=== PATIENT | male | born 1990 | race Caucasian/White ===

== ENCOUNTER 2020-11-07 13:57 | Emergency (ER) | payer OTHER ==
[~2020-11-07] VITALS: Ht 170.2 cm; Wt 83.9 kg
[2020-11-07 14:01] VITALS: BP 165/107
[2020-11-07] MEDS ORDERED: ASPIRIN 81 MG TAB.CHEW PO ONE (14:25)
[2020-11-07] MEDS ORDERED: ASPIRIN 81 MG TAB.CHEW ONE (14:28)
[2020-11-07 14:37] LABS: BASOPHILS % (AUTO) 0.6 % (0.0-2.0); EOSINOPHILS # (AUTO) 0.1 K/uL (0-0.4); EOSINOPHILS % (AUTO) 1.7 % (0.0-4.0); HEMATOCRIT 46.8 % (36-52); HEMOGLOBIN 15.3 g/dL (12.0-18.0); LYMPHOCYTES # (AUTO) 2.6 K/uL (2.0-11.5); LYMPHOCYTES % (AUTO) 31.1 % (20.5-51.1); MEAN CORPUSCULAR HEMOGLOBIN 26 pg (27-31); MEAN CORPUSCULAR HGB CONC 33 g/dL (33-37); MEAN CORPUSCULAR VOLUME 79.1 fL (80-94); MONOCYTES # (AUTO) 0.7 K/uL (0.8-1.0); MONOCYTES % (AUTO) 7.9 % (1.7-9.3); NEUTROPHILS % (AUTO) 58.7 % (42.2-75.2); PLATELET COUNT (AUTO) 319 K/uL (140-450); RED BLOOD CELL COUNT(AUTO) 5.91 MIL/uL (4.20-6.10); RED CELL DISTRIBUTION WIDTH 13.7 % (11.6-13.7); WHITE BLOOD COUNT (AUTO) 8.5 K/uL (4.8-10.8)
[2020-11-07 14:51] LABS: ALBUMIN 4.6 g/dL (3.4-5.0); ANION GAP 13.3 (8-16); CARBON DIOXIDE 26.7 mmol/L (21-32); TOTAL BILIRUBIN 0.5 mg/dL (0.0-1.0)
[2020-11-07] MEDS ORDERED: METO-485 PO (17:20)
[2020-11-07 17:36] VITALS: BP 165/107
== END 2020-11-07 17:37 | disposition home or self-care (01) ==
LOC: MED 13:57
DX: R07.9 Chest pain, unspecified (principal); R10.13 Epigastric pain; R06.02 Shortness of breath; I10 Essential (primary) hypertension; Z79.899 Other long term (current) drug therapy
CPT/HCPCS: 36415; 71045; 71275; 80053; 83690; 83880; 84484; 85025; 93005; 99285; Q9967

== ENCOUNTER 2020-11-08 19:15 | Emergency (ER) | payer OTHER ==
[~2020-11-08] VITALS: Ht 170.2 cm; Wt 81.6 kg
[~2020-11-08 19:15] MED LIST: METO-485 PO
[2020-11-08 19:19] VITALS: BP 155/73
--- NOTE | 2020-11-08 19:26 | NUR ---
ekg performed in triage room. ekg reads sinus rhythm @ 60
--- NOTE | 2020-11-08 20:00 | NUR ---
30 y/o male bib self for sternal chest pain 03/22. patient states "tightness and pain to the left elbow. pt. gcs 15; a/ox4. +n/v. patient was seen at [facility] for gastroparesis. abdomen soft and round. Abdominal sounds heard througout. NSR at 88 on ekg. Ambulates with steady gait. placed on monitor. bed at the lowest setting. ermd aware. pmh: gastroparesis meds: reglan
[2020-11-08] MEDS ORDERED: PANTOPRAZOLE 40 MG TABEC PO ONE (20:40)
[2020-11-08] MEDS ORDERED: ONDANSETRON 4 MG ODT PO ONE (20:40)
[2020-11-08] MEDS ORDERED: MAGNESIUM CITRATE 300 ML BTL PO ONE (20:40)
--- NOTE | 2020-11-08 21:01 | NUR ---
Pt sitting up in bed, locked and in lowest position, HOB elevated, side rail x1. Pt connected to cardiac/vascular sonographer. No acute distress noted.
--- NOTE | 2020-11-08 21:11 | NUR ---
PT TAKEN TO XRAY
--- NOTE | 2020-11-08 21:18 | NUR ---
PT RETURN FROM XRAY
--- NOTE | 2020-11-08 22:18 | NUR ---
covid jorge and flu taken to lab
[2020-11-08 22:25] VITALS: BP 110/68
--- NOTE | 2020-11-08 22:25 | NUR ---
Patient discharged with v/s stable. Written and verbal after care instructions given and explained. Patient verbalized understanding. Ambulatory with steady gait. All questions addressed prior to discharge. Advised to follow up with PMD.
== END 2020-11-08 22:25 | disposition home or self-care (01) ==
LOC: MED 19:15
DX: R07.89 Other chest pain (principal); R11.0 Nausea; I10 Essential (primary) hypertension; Z79.899 Other long term (current) drug therapy
CPT/HCPCS: 71045; 74018; 93005; 99284; Q0162

== ENCOUNTER 2024-03-12 19:21 | Emergency (ER) | payer OTHER ==
[~2024-03-12] VITALS: Ht 172.7 cm; Wt 95.3 kg
[2024-03-12 19:32] VITALS: BP 154/81; PULSE 81; RESP 17; TEMP 98.3; O2SAT 98
[2024-03-12 19:43] VITALS: BP 154/81; PULSE 81; RESP 17; TEMP 98.3; O2SAT 98
[2024-03-12 20:50] LABS: BASOPHILS % (AUTO) 0.5 % (0.0-2.0); EOSINOPHILS # (AUTO) 0.2 K/uL (0-0.4); HEMATOCRIT 44.6 % (36-52); HEMOGLOBIN 14.7 g/dL (12.0-18.0); LYMPHOCYTES # (AUTO) 2.3 K/uL (2.0-11.5); LYMPHOCYTES % (AUTO) 30.8 % (20.5-51.1); MEAN CORPUSCULAR HEMOGLOBIN 26 pg (27-31); MEAN CORPUSCULAR HGB CONC 33 g/dL (33-37); MEAN CORPUSCULAR VOLUME 78.1 fL (80-94); MONOCYTES # (AUTO) 0.6 K/uL (0.8-1.0); MONOCYTES % (AUTO) 8.4 % (1.7-9.3); NEUTROPHILS # (AUTO) 4.2 K/uL (1.8-7.7); NEUTROPHILS % (AUTO) 57.3 % (42.2-75.2); PLATELET COUNT (AUTO) 275 K/uL (140-450); RED CELL DISTRIBUTION WIDTH 13.5 % (11.6-13.7); WHITE BLOOD COUNT (AUTO) 7.4 K/uL (4.8-10.8)
[2024-03-12 20:51] LABS: APPEARANCE,URINE CLEAR (CLEAR); BILIRUBIN,URINE NEGATIVE (NEGATIVE); BLOOD, URINE NEGATIVE (NEGATIVE); COLOR,URINE YELLOW (YELLOW); LEUKOCYTE ESTERASE ,URINE NEGATIVE (NEGATIVE); NITRITE, URINE NEGATIVE (NEGATIVE); PH,URINE 6.5 (5.0-9.0); PROTEIN,URINE NEGATIVE (NEGATIVE); UGLUCOSE NEGATIVE (NEGATIVE); UROBILINOGEN,URINE 0.2 EU/dL (0.2 - 1)
[2024-03-12 21:05] LABS: ANION GAP 14.1 (8-16); CALCIUM 8.8 mg/dL (8.5-10.1); CARBON DIOXIDE 27.2 mmol/L (21-32); CREATININE 1.2 mg/dL (0.6-1.3); POTASSIUM 3.3 mmol/L (3.5-5.1)
[2024-03-12 21:12] LABS: ALBUMIN 3.9 g/dL (3.4-5.0); BILIRUBIN,DIRECT 0.1 mg/dL (0.0-0.3); TOTAL BILIRUBIN 0.4 mg/dL (0.0-1.0); TOTAL PROTEIN, SERUM 7.6 g/dL (6.4-8.2)
[2024-03-12] MEDS ORDERED: METR-435 PO (22:52)
== END 2024-03-12 22:55 | disposition home or self-care (01) ==
LOC: MED 19:21
DX: K52.9 Noninfective gastroenteritis and colitis, unspecified (principal); I10 Essential (primary) hypertension; Z79.899 Other long term (current) drug therapy
CPT/HCPCS: 36415; 80048; 80076; 81003; 85025; 87040; 99284